=== PATIENT | male | born 1945 | race African-American/Black ===

== ENCOUNTER 2023-10-26 18:41 | Emergency (ER) | payer BC, OTHER ==
[~2023-10-26] VITALS: Ht 180.3 cm; Wt 83.7 kg
[2023-10-26 19:03] VITALS: BP 127/73; PULSE 101; RESP 16; TEMP 97.8
[2023-10-26 21:44] VITALS: O2SAT 96
== END 2023-10-26 21:51 | disposition home or self-care (01) ==
LOC: ER 18:41
DX: G62.9 Polyneuropathy, unspecified (principal); I10 Essential (primary) hypertension